=== PATIENT | male | born 1955 | race African-American/Black ===

== ENCOUNTER 2019-11-13 09:39 | Inpatient (IN) ==
[2019-11-13 11:16] LABS: Basophils # 0.1 10*3/uL (0.0-0.2); Basophils % 0.8 % (0.0-0.8); Eosinophils # 0.1 10*3/uL (0.0-0.87); Eosinophils % 0.9 % (0.00-10.9); Hematocrit 37.3 VOL% (42.0-52.0); Hemoglobin 11.9 GM/DL (14.0-18.0); Immature Granulocytes % 0.4 %; Immature Granulocytes Absolute 0.03 #; Mean Corpuscular HGB Conc 31.9 GM/DL (32-36); Mean Corpuscular Volume 105.7 FL (87-102); Mean Platelet Volume 8.9 FL (9.6-12.0); Monocytes % 5.9 % (1.7-12.7); Platelet Count 263 T/CUMM (130-400); Red Blood Count 3.53 MC/CUMM (3.8-5.5); Red Cell Distribution Width 12.9 % (9.3-17.3); White Blood Count 7.8 T/CUMM (4-12)
[2019-11-13 11:35] LABS: Albumin 3.8 G/DL (3.4-5.0); Bilirubin,Total 0.4 MG/DL (0.2-1.0); Osmolality,Calculated 277.5 MOS/KG (273-304); Total Protein 8.1 G/DL (6.4-8.3)
[2019-11-13] MEDS ORDERED: ONDANSETRON 4 MG/2 ML VIAL IV STA (11:54)
[2019-11-13] MEDS ORDERED: ACETAMINOPHEN 325 MG TABLET PO PRN (13:06)
[2019-11-13] MEDS ORDERED: ONDANSETRON 4 MG/2 ML VIAL IV PRN (13:06)
[2019-11-13] MEDS: LACTATED RINGERS 1,000 ML IV SCH (13:31)
[2019-11-14 04:16] LABS: Basophils # 0.1 10*3/uL (0.0-0.2); Eosinophils # 0.1 10*3/uL (0.0-0.87); Eosinophils % 2.1 % (0.00-10.9); Hematocrit 33.4 VOL% (42.0-52.0); Hemoglobin 10.5 GM/DL (14.0-18.0); Immature Granulocytes % 0.3 %; Immature Granulocytes Absolute 0.02 #; Lymphocytes # 1.9 10*3/uL (1.4-4.0); Mean Corpuscular HGB Conc 31.4 GM/DL (32-36); Monocytes % 7.7 % (1.7-12.7); Neutrophils % 55.9 % (38.7-73.9); Platelet Count 226 T/CUMM (130-400); Red Blood Count 3.15 MC/CUMM (3.8-5.5); Red Cell Distribution Width 12.8 % (9.3-17.3); White Blood Count 5.8 T/CUMM (4-12)
[2019-11-14 04:50] LABS: Alanine Aminotransferase 13 U/L (16-61); Albumin 2.8 G/DL (3.4-5.0); Alkaline Phosphatase 66 U/L (45-117); Aspartate Amino Transferase 15 U/L (0-37); Bilirubin,Total < 0.39 MG/DL (0.2-1.0); Blood Urea Nitrogen 18 MG/DL (7-18); Calcium 8.1 MG/DL (8.5-10.1); Estimated Glom Filtration Rate 73 ML/MIN; Glucose 100 MG/DL (74-106); Osmolality,Calculated 282.3 MOS/KG (273-304); Total Protein 6.4 G/DL (6.4-8.3)
[2019-11-14] MEDS: LACTATED RINGERS 1,000 ML IV SCH ×4 (06:27→23:17)
[2019-11-14] MEDS: PANTOPRAZOLE 40 MG TABLET PO SCH ×2 (09:28→10:17)
[2019-11-14] MEDS ORDERED: fentaNYL 100 MCG/2 ML VIAL IV ONE (10:00)
[2019-11-14] MEDS ORDERED: MIDAZOLAM 2 MG/2 ML VIAL IV ONE (10:00)
[2019-11-14] MEDS ORDERED: HEPARIN/NACL 0.9% 2 UNITS/ML 2,000 ML IV ONE (10:51)
[2019-11-14] MEDS ORDERED: MIDAZOLAM 2 MG/2 ML VIAL ONE (11:50)
[2019-11-14] MEDS ORDERED: fentaNYL 100 MCG/2 ML VIAL ONE (11:50)
[2019-11-14] MEDS ORDERED: ALTEPLASE 2 MG VIAL ONE (12:40)
[2019-11-14] MEDS ORDERED: HEPARIN DRIP 25,000 UNITS/500 ML PREMIX IV SCH ×3 (13:30→13:44)
[2019-11-14] MEDS ORDERED: ALTEPLASE 24 MG in SODIUM CHLORIDE 0.9% 480 ML IV SCH (13:30)
[2019-11-14 15:21] LABS: PT Patient Result 11.1 SECS (9.8-11.9); Partial Thromboplastin Time 34.5 SECS (23.9-33.8)
[2019-11-14 16:53] LABS: INR 1.1; PT Patient Result 11.5 SECS (9.8-11.9)
[2019-11-15 02:15] LABS: INR 1.1; PT Patient Result 11.7 SECS (9.8-11.9)
[2019-11-15 02:18] LABS: Partial Thromboplastin Time 40.9 SECS (23.9-33.8)
[2019-11-15] MEDS ORDERED: HEPARIN/NACL 0.9% 2 UNITS/ML 2,000 ML IV ONE (07:06)
[2019-11-15] MEDS ORDERED: ceFAZolin 1,000 MG VIAL ONE (08:07)
[2019-11-15] MEDS ORDERED: fentaNYL 100 MCG/2 ML VIAL ONE (08:07)
[2019-11-15] MEDS ORDERED: MIDAZOLAM 2 MG/2 ML VIAL ONE (08:08)
[2019-11-15] MEDS ORDERED: ceFAZolin 1,000 MG in SYRINGE 1 EACH IV ONE (08:14)
[2019-11-15] MEDS: PANTOPRAZOLE 40 MG TABLET PO SCH (09:06)
[2019-11-15] MEDS ORDERED: TRAZODONE 150 MG PO PRN (09:58)
[2019-11-15] MEDS ORDERED: LIDOCAINE 1%/EPI INJ 20 ML VIAL ONE (10:12)
[2019-11-15 11:35] VITALS: BP 145/67
[2019-11-15] MEDS ORDERED: NON-FORMULARY MEDICATION (Gabapentin [Gabapentin] 600 MG) PO SCH (21:00)
[2019-11-15] MEDS ORDERED: KETOCONAZOLE TOP SCH (21:00)
[2019-11-15] MEDS ORDERED: MINERAL OIL HYDROPHIL PETROLAT TOP SCH (21:00)
[2019-11-16] MEDS ORDERED: BUPROPION HCL 150 MG PO SCH (09:00)
[2019-11-16] MEDS ORDERED: NON-FORMULARY MEDICATION (Loratadine [Loratadine] 10 MG) PO SCH (09:00)
[2019-11-16] MEDS ORDERED: NON-FORMULARY MEDICATION (Pantoprazole [Pantoprazole] 40 MG) PO SCH (09:00)
[2019-11-16] MEDS ORDERED: FOLIC ACID 1 MG PO SCH (09:00)
[2019-11-16] MEDS ORDERED: DULOXETINE 120 MG PO SCH (09:00)
[2019-11-16] MEDS ORDERED: MULTIVITAMIN WITH MINERALS PO SCH (09:00)
[2019-11-16] MEDS ORDERED: ABACAVIR DOLUTEGRAVIR LAMIVUD PO SCH (09:00)
[2019-11-16] MEDS ORDERED: Cyanocobalamin (Vitamin B-12) 1,000 MCG PO SCH (09:00)
== END 2019-11-15 15:44 | disposition home or self-care (01) | DRG 254 ==
LOC: N.ED 09:39 → N.EDINP 15:02 → N.ICU 15:16 → N.3E 11-15 09:45
PROVIDERS: ADMIT Surgery; ATTEND Surgery
PROC: IRURORE (2019-11-15 07:26)